=== PATIENT | male | born 1950 | race Two or more races ===

== ENCOUNTER 2021-03-14 11:51 | Emergency (ER) | payer MEDICARE, MEDICAID ==
[~2021-03-14] VITALS: Ht 172.7 cm; Wt 88.6 kg
[2021-03-14] MEDS ORDERED: DEXL30CA3 PO (11:59)
[2021-03-14] MEDS ORDERED: ACET325S20 PR (11:59)
[2021-03-14] MEDS ORDERED: GABA-1181 PO (11:59)
[2021-03-14] MEDS ORDERED: ATOR20TA86 PO (11:59)
[2021-03-14] MEDS ORDERED: LOVA20TA73 PO (11:59)
[2021-03-14] MEDS ORDERED: LORA-1000 PO (11:59)
[2021-03-14] MEDS ORDERED: CloNIDine HCL 0.2 MG TABLET PO ONE (13:45)
[2021-03-14 13:52] LABS: BASOPHILS % (AUTO) 0.8 % (0.0-2.0); EOSINOPHILS % (AUTO) 1.4 % (1.0-6.0); HEMATOCRIT 41.2 % (41-53); HEMOGLOBIN 13.4 g/dL (13.5-17.5); LYMPHOCYTES # (AUTO) 1.5 K/uL (1.0-4.8); LYMPHOCYTES % (AUTO) 22.2 % (22.0-44.0); MEAN CORPUSCULAR HEMOGLOBIN 27.1 pg (26.0-34.0); MEAN CORPUSCULAR HGB CONC 32.6 G/dL (31.0-37.0); MEAN CORPUSCULAR VOLUME 83 fL (80-100); MONOCYTES # (AUTO) 0.5 K/uL (0.1-1.0); MONOCYTES % (AUTO) 8.3 % (2.0-9.0); NEUTROPHILS # (AUTO) 4.4 K/uL (1.8-7.7); NEUTROPHILS % (AUTO) 67.3 % (40.0-70.0); PLATELET COUNT (AUTO) 128 K/uL (150-450); RED BLOOD CELL COUNT(AUTO) 4.95 MIL/uL (4.50-5.90); RED CELL DISTRIBUTION WIDTH 14.7 % (11.5-14.5)
[2021-03-14] MEDS: ACETAMINOPHEN 325 MG TABLET PO ONE ×2 (13:58→14:04)
[2021-03-14 14:04] LABS: CALCIUM, TOTAL 8.7 mg/dL (8.8-10.5); CREATININE 1.22 mg/dL (0.60-1.30)
[2021-03-14 14:09] LABS: ALBUMIN 3.4 g/dL (3.4-5.0); BILIRUBIN,TOTAL 0.5 mg/dL (0.1-1.0); TOTAL PROTEIN, SERUM 6.8 g/dL (6.4-8.2)
[2021-03-14 15:25] VITALS: BP 188/97
== END 2021-03-14 15:49 | disposition home or self-care (01) ==
LOC: EMS 12:01
DX: I10 Essential (primary) hypertension (principal); G89.29 Other chronic pain; M54.9 Dorsalgia, unspecified; Z79.899 Other long term (current) drug therapy
CPT/HCPCS: 80053; 84484; 85025; 93005; 99284